=== PATIENT | female | born 1925 | race Caucasian/White ===

== ENCOUNTER 2017-02-24 08:27 | Outpatient (CLI) | payer MEDICARE, OTHER | END 2017-02-24 08:28 | disposition home or self-care (01) | DX: E87.1 Hypo-osmolality and hyponatremia (principal); R73.9 Hyperglycemia, unspecified; E87.6 Hypokalemia; I10 Essential (primary) hypertension ==

== ENCOUNTER 2017-06-06 14:10 | Outpatient (CLI) | payer MEDICARE, OTHER ==
--- NOTE | 2017-06-06 17:00 | XRAY Preliminary Report ---
Exam: XR Knee 4 View LT IMPRESSION: 1. Patellar fracture. 2. Moderate joint effusion. [facility] SITE ID: [id number]
--- NOTE | 2017-06-06 17:31 | XRAY Report ---
EXAM: LEFT KNEE RADIOGRAPHY EXAM DATE: 06/06/2017 04:42 PM. CLINICAL HISTORY: Pain after contusion. COMPARISON: 08/17/2012. TECHNIQUE: 4 views. FINDINGS: Bones: Acute comminuted displaced fracture involving the inferior half of the patella with up to 1 cm distraction of the fracture fragments. Joints: Moderate joint effusion. Moderate narrowing medial joint space with minimal bony reactive haydee nges. Soft Tissues: Marked edema adjacent to the fracture. IMPRESSION: 1. Patellar fracture. 2. Moderate joint effusion. [facility] Referring Provider Line: [phone] SITE ID: [id number]
== END 2017-06-06 14:11 | disposition home or self-care (01) ==
LOC: DI.S 14:10
PROVIDERS: ATTEND Physician Assistant Medical
DX: S80.02XA Contusion of left knee, initial encounter (principal); S82.042A Displaced comminuted fracture of left patella, initial encounter for closed fracture; M25.462 Effusion, left knee